=== PATIENT | male | born 2000 | race Caucasian/White ===

== ENCOUNTER → 2021-06-16 10:47 | Outpatient (CLI) | payer BC, SELFPAY ==
--- NOTE | ~2021-06-16 | US_ITS ---
EXAMINATION: US soft tissue head and neck DATE: 06/16/2021 11:02 INDICATION: Neck mass TECHNIQUE: Multiple grayscale and Doppler ultrasound images of the region of concern at the right pos terolateral neck were obtained. COMPARISON: None FINDINGS: Palpable abnormality of concern corresponds to a normal sized 1.5 x 0.5 x 1.1 cm subcutaneous lymph n ode with central echogenic fatty hilum. Vascular flow is identified at the hilum on color Doppler. No abnormal masses or fluid collections identified. IMPRESSION: 1. Normal sized right posterior cervical triangle lymph node measuring 5 mm maximal short axis diamet er. Reviewed, dictated and finalized at location A. IMPRESSION: 1. Normal sized right posterior cervical triangle lymph node measuring 5 mm max imal short axis diameter.
== END ==
PROVIDERS: Visit Provider Family Medicine
DX: R22.1 Localized swelling, mass and lump, neck (principal)
CPT/HCPCS: 76536